=== PATIENT | male | born 1975 | race Caucasian/White ===

== ENCOUNTER 2025-03-07 10:58 | Outpatient (RCR) | payer MEDICARE, MEDICAID, SELFPAY | END 2025-03-25 23:59 | disposition home or self-care (01) | LOC: WPT 10:58 | PROVIDERS: Visit Provider Nurse Practitioner Family | DX: M54.2 Cervicalgia (principal); G89.29 Other chronic pain | CPT/HCPCS: 97110; 97161; 97530 ==